=== PATIENT | female | born 1975 | race Caucasian/White ===

== ENCOUNTER 2022-09-16 17:24 | Emergency (ER) | payer MEDICAID, SELFPAY ==
--- NOTE | ~2022-09-16 | XR_ITS ---
EXAMINATION: XR CHEST CLINICAL INFORMATION: Chest pain COMPARISON: None TECHNIQUE: 2 views of the chest were obtained. FINDINGS: No significant abnormality is noted involving the heart, lungs, mediastinum, bony thorax or soft tissues. XR/XR chest 2V IMPRESSION: Unremarkable examination.
--- NOTE | 2022-09-16 17:37 | ED.CHESTPAIN ---
HPI - Chest Pain General Chief Complaint: Upper Respiratory Symptoms <Melinda Scott NP - Last Filed: 09/16/22 17:42> Stated Complaint: Sent from , Covid + 10 days ago, Chest pain <Melinda Scott NP - Last Filed: 09/16/22 17:42> Time Seen by Provider: 09/16/22 21:03 <Melinda Scott NP - Last Filed: 09/16/22 17:42> Source: patient <JOSE CRUZ Zhang - Last Filed: 09/16/22 22:21> Mode of arrival: ambulatory <JOSE CRUZ Zhang - Last Filed: 09/16/22 22:21> Limitations: no limitations <JOSE CRUZ Zhang - Last Filed: 09/16/22 22:21> History of Present Illness HPI narrative: This is a 47-year-old female past medical history significant for recent COVID-19 diagnosis last presenting to the emergency department with complaints of chest discomfort which she describes as intermittent, substernal, nonradiating stabbing in nature, dry cough, subjective fevers and chills, fatigue, malaise and intermittent shortness of breath worse with exertion and exercising. Patient denies lower extremity swelling, calf pain, headache, vision changes, dizziness, weakness, nausea, vomiting, abdominal pain, urinary symptoms, GI symptoms. No new sick contacts. She went to urgent care and advised her to come into the emergency department for further evaluation and treatment. Not a cigaret smoker, no hx of hypercoagulable do or malignancy, no hx of PE/DVT. Patient recently finished paxlovid. <JOSE CRUZ Zhang - Last Filed: 09/16/22 22:21> Related Data Home Medications: Previous Rx's Medication Instructions Recorded albuterol sulfate 90 mcg/actuation 2 inh inhalation Q4-6H PRN 09/16/22 breath activated powder inhaler shortness of breath or wheezing #1 ea prednisone 20 mg tablet 40 mg PO DAILY 5 days #10 tabs 09/16/22 <Melinda Scott NP - Last Filed: 09/16/22 17:42> Allergies/Adverse Reactions: Allergies Allergy/AdvReac Type Severity Reaction Status Date / Time No Known Allergies Allergy Verified 09/16/22 17:39 <Melinda Scott NP - Last Filed: 09/16/22 17:42> Review of Systems Review of Systems: Constitutional : No Weight loss, No Fever, No Chills, + Fatigue, + Malaise ENT/Mouth : No sore throat, No Rhinorrhea Eyes: No Eye Pain, No Swelling, No Redness Cardiovascular : + Chest Pain, + SOB, + Dyspnea on Exertion, No Orthopnea, No Edema, No Palpitations Respiratory : + Cough, No Sputum, No Wheezing Gastrointestinal : No Nausea, No Vomiting, No Diarrhea, No Constipation, No abdominal Pain, No Hematochezia, No Melena Genitourinary : No Dysuria, No Urinary Frequency, No Hematuria, Musculoskeletal : No joint pain, No Myalgias, No Joint Swelling Skin : No Skin Lesions, No rash Neuro : No Weakness, No Numbness, No Dizziness, No Headache Psych : No Anxiety/Panic, No Depression All other systems reviewed and are negative <JOSE CRUZ Zhang - Last Filed: 09/16/22 22:21> Yes all other systems are reviewed and are negative <JOSE CRUZ Zhang - Last Filed: 09/16/22 22:21> FOR[facility]LY [facility] Past Medical History Attestation statement: The following information was validated with the patient. <JOSE CRUZ Zhang - Last Filed: 09/16/22 22:21> Source: old records reviewed and nursing notes reviewed <JOSE CRUZ Zhang - Last Filed: 09/16/22 22:21> Social History Social History: Social History Advance Directives: No Advance Directives Information Provided: Yes <Melinda Scott NP - Last Filed: 09/16/22 17:42> Physical Exam Vital Signs: Vital Signs: Last Vital Signs Temp 97.3 F 09/16/22 17:38 Pulse 72 09/16/22 17:38 Resp 16 09/16/22 17:38 BP 110/70 09/16/22 17:38 Pulse Ox 99 09/16/22 17:38 O2 Del Method 09/16/22 17:38 BMI result Body Mass Index 23.1 <Melinda Scott NP - Last Filed: 09/16/22 17:42> Vital Signs: Last Vital Signs Temp 97.3 F 09/16/22 17:38 Pulse 72 09/16/22 17:38 Resp 16 09/16/22 17:38 BP 110/70 09/16/22 17:38 Pulse Ox 99 09/16/22 17:38 O2 Del Method 09/16/22 17:38 BMI result Body Mass Index 23.1 Vital signs stable <JOSE CRUZ Zhang - Last Filed: 09/16/22 22:21> Appearance: Alert.? Oriented X3.? No acute distress.? Head: Normocephalic, atraumatic, no step-offs or deformities Eyes: Pupils equal, round and reactive to light.? Neck: Normal inspection.? Neck supple.? CVS: Normal heart rate and rhythm.? Pulses normal.? Respiratory: No respiratory distress.? Breath sounds normal.? Abdomen: Soft and nontender.? Skin: Skin warm and dry.? Normal skin color.? Normal skin turgor.? Extremities: No lower extremity edema.? No calf ttp, neagtive rekha b/l. 5/5 strength to bilateral upper and lower extremities Neuro: Oriented X 3.? No motor deficit.? No sensory deficit. CN 2-12 intact <JOSE CRUZ Zhang - Last Filed: 09/16/22 22:21> Course Course Course Narrative: This is a rapid medical exam. Deferred additional HPI, ROS, PE to primary provider. 47 yo female with no known past medical history here chest pain x 2 days, mild cough, mild diff breathing. COVID + last . Went to and referred in to the emergency department for further evaluation. Will obtain labs, EKG, CXR. VSS <Melinda Scott NP - Last Filed: 09/16/22 17:42> Reevaluation(s) Reevaluation #1: CBC appears to be within normal limits. Chemistry with no acute findings requiring intervention. Troponin negative, EKG nonischemic unlikely ACS. BNP within normal limits. Chest x-ray unremarkable. D-dimer pending. <JOSE CRUZ Zhang - Last Filed: 09/16/22 22:21> Time: 21:16 <JOSE CRUZ Zhang - Last Filed: 09/16/22 22:21> Reevaluation #2: Dimer negative. Patient will be discharged home with prednisone and albuterol inhaler. Advised to follow-up with PCP. Educated patient on diagnosis and treatment plan, answered all question, patient verbalizes understanding. At this time patient will be discharged home, advised to return with new or worsening symptoms. Educated on worrisome signs and symptoms and when to return. At this time I feel comfortable discharge home. <JOSE CRUZ Zhang - Last Filed: 09/16/22 22:21> Time: 22:20 <JOSE CRUZ Zhang - Last Filed: 09/16/22 22:21> Medications Administered Discontinued Medications Generic Name Dose Route Start Last Admin Trade Name Freq PRN Reason Stop Dose Admin Ketorolac Tromethamine 30 mg 09/16/22 21:23 09/16/22 21:47 Ketorolac Tromethamine 15 Mg/Ml Vial IM 09/16/22 21:24 30 mg ONCE ONE Administration <Melinda Scott NP - Last Filed: 09/16/22 17:42> Medications Administered Discontinued Medications Generic Name Dose Route Start Last Admin Trade Name Freq PRN Reason Stop Dose Admin Ketorolac Tromethamine 30 mg 09/16/22 21:23 09/16/22 21:47 Ketorolac Tromethamine 15 Mg/Ml Vial IM 09/16/22 21:24 30 mg ONCE ONE Administration <JOSE CRUZ Zhang - Last Filed: 09/16/22 22:21> Medical Decision Making Medical Decision Making [facility] Narrative: [age]-year-old female presents with upper respiratory symptoms, chest discomfort x2 days, patient recently COVID-19 positive last . Advised to come in for further evaluation treatment from an urgent care. Physical examination benign negative Rekha bilaterally. Likely URI or post COVID syndrome. Unlikely PE, pneumonia, ACS. Patient is PERC negative. Plan at this time is basic labs, imaging, EKG, troponin, D-dimer <JOSE CRUZ Zhang - Last Filed: 09/16/22 22:21> Differential Diagnosis Differential Diagnoses: The differential diagnosis associated with the presentation includes <JOSE CRUZ Zhang - Last Filed: 09/16/22 22:21> Likely URI or post COVID syndrome. Unlikely PE, pneumonia, ACS. Patient is PERC negative. <JOSE CRUZ Zhang - Last Filed: 09/16/22 22:21> Admission/Observation Consideration of admission/observation: Escalation of care including admission/observation considered <JOSE CRUZ Zhang - Last Filed: 09/16/22 22:21> Lab Data MDM Lab Attestation statement: I reviewed the patient's lab results. <JOSE CRUZ Zhang - Last Filed: 09/16/22 22:21> Result Diagrams: 09/16/22 18:24 09/16/22 18:24 <Melinda Scott NP - Last Filed: 09/16/22 17:42> Labs: Lab Results 09/16/22 09/16/22 09/16/22 Range/Units 18:24 18:24 18:24 WBC 5.3 (4.8-10.8) X10*3/uL RBC 4.78 (4.20-5.50) X10*6/uL Hgb 13.9 (12.0-16.0) g/dl Hct 43.3 (37.0-47.0) % MCV 90.6 (80.0-98.0) fL MCH 29.1 (27.0-33.0) pg MCHC 32.1 (31.0-35.0) g/dl RDW 12.9 (11.0-16.0) % Plt Count 195 (160-400) X10*3/uL MPV 10.8 (9.4-12.3) fL Immature Gran % (Auto) 0.4 (0.0-0.4) % Neut % (Auto) 55.5 (45-73) % Lymph % (Auto) 36.0 (20-40) % Crosby % (Auto) 5.8 (2-11) % Eos % (Auto) 1.9 (0-4) % Baso % (Auto) 0.4 (0-2) % Lymph # (Auto) 1.9 (1.2-4.9) X10*3/uL Crosby # (Auto) 0.3 (0.1-1.2) X10*3/uL Eos # (Auto) 0.1 (0.0-0.4) X10*3/uL Baso # (Auto) 0.0 (0.0-0.2) X10*3/uL Abs Immat Gran (auto) 0.02 (0.00-0.03) X10*3/uL Absolute Neuts (auto) 2.9 (2.0-8.3) x10*3/uL Absolute Nucleated RBC 0.000 (0.0-0.012) X10*3/uL Nucleated RBC % (auto) 0.0 (0.0-0.2) /100WBC PT 13.5 H (10.0-13.1) SEC INR 1.2 H (0.9-1.1) D-Dimer High Sensitivty < 150 NG/ML Sodium 140 (135-145) mmol/L Potassium 3.7 (3.3-5.1) mmol/L Chloride 107 (96-108) mmol/L Carbon Dioxide 30 H (22-29) mmol/L Anion Gap 7 L (12-20) BUN 14 (9-16) mg/dL Creatinine 0.80 (0.5-1.4) mg/dL Estim Creat Clear Calc 83.6 Estimated GFR > 60 Random Glucose 88 (60-115) mg/dL Calcium 9.0 (8.4-10.2) mg/dL Total Bilirubin 0.2 (0.0-1.0) mg/dL Direct Bilirubin < 0.2 (0.0-0.5) mg/dL AST 14 (5-31) U/L ALT 12 (0-31) U/L Alkaline Phosphatase 69 (39-117) U/L Troponin I High Sens (<3.5-17.0) ng/L B-Natriuretic Peptide (<100) pg/mL Total Protein 6.5 (6.5-8.0) g/dL Albumin 4.1 (3.5-5.0) g/dL 09/16/22 09/16/22 Range/Units 18:24 18:24 WBC (4.8-10.8) X10*3/uL RBC (4.20-5.50) X10*6/uL Hgb (12.0-16.0) g/dl Hct (37.0-47.0) % MCV (80.0-98.0) fL MCH (27.0-33.0) pg MCHC (31.0-35.0) g/dl RDW (11.0-16.0) % Plt Count (160-400) X10*3/uL MPV (9.4-12.3) fL Immature Gran % (Auto) (0.0-0.4) % Neut % (Auto) (45-73) % Lymph % (Auto) (20-40) % Crosby % (Auto) (2-11) % Eos % (Auto) (0-4) % Baso % (Auto) (0-2) % Lymph # (Auto) (1.2-4.9) X10*3/uL Crosby # (Auto) (0.1-1.2) X10*3/uL Eos # (Auto) (0.0-0.4) X10*3/uL Baso # (Auto) (0.0-0.2) X10*3/uL Abs Immat Gran (auto) (0.00-0.03) X10*3/uL Absolute Neuts (auto) (2.0-8.3) x10*3/uL Absolute Nucleated RBC (0.0-0.012) X10*3/uL Nucleated RBC % (auto) (0.0-0.2) /100WBC PT (10.0-13.1) SEC INR (0.9-1.1) D-Dimer High Sensitivty NG/ML Sodium (135-145) mmol/L Potassium (3.3-5.1) mmol/L Chloride (96-108) mmol/L Carbon Dioxide (22-29) mmol/L Anion Gap (12-20) BUN (9-16) mg/dL Creatinine (0.5-1.4) mg/dL Estim Creat Clear Calc Estimated GFR Random Glucose (60-115) mg/dL Calcium (8.4-10.2) mg/dL Total Bilirubin (0.0-1.0) mg/dL Direct Bilirubin (0.0-0.5) mg/dL AST (5-31) U/L ALT (0-31) U/L Alkaline Phosphatase (39-117) U/L Troponin I High Sens < 3.5 (<3.5-17.0) ng/L B-Natriuretic Peptide 17 (<100) pg/mL Total Protein (6.5-8.0) g/dL Albumin (3.5-5.0) g/dL <Melinda Scott, [employer] - Last Filed: 09/16/22 17:42> Lab Results 09/16/22 09/16/22 09/16/22 Range/Units 18:24 18:24 18:24 WBC 5.3 (4.8-10.8) X10*3/uL RBC 4.78 (4.20-5.50) X10*6/uL Hgb 13.9 (12.0-16.0) g/dl Hct 43.3 (37.0-47.0) % MCV 90.6 (80.0-98.0) fL MCH 29.1 (27.0-33.0) pg MCHC 32.1 (31.0-35.0) g/dl RDW 12.9 (11.0-16.0) % Plt Count 195 (160-400) X10*3/uL MPV 10.8 (9.4-12.3) fL Immature Gran % (Auto) 0.4 (0.0-0.4) % Neut % (Auto) 55.5 (45-73) % Lymph % (Auto) 36.0 (20-40) % Crosby % (Auto) 5.8 (2-11) % Eos % (Auto) 1.9 (0-4) % Baso % (Auto) 0.4 (0-2) % Lymph # (Auto) 1.9 (1.2-4.9) X10*3/uL Crosby # (Auto) 0.3 (0.1-1.2) X10*3/uL Eos # (Auto) 0.1 (0.0-0.4) X10*3/uL Baso # (Auto) 0.0 (0.0-0.2) X10*3/uL Abs Immat Gran (auto) 0.02 (0.00-0.03) X10*3/uL Absolute Neuts (auto) 2.9 (2.0-8.3) x10*3/uL Absolute Nucleated RBC 0.000 (0.0-0.012) X10*3/uL Nucleated RBC % (auto) 0.0 (0.0-0.2) /100WBC PT 13.5 H (10.0-13.1) SEC INR 1.2 H (0.9-1.1) D-Dimer High Sensitivty < 150 NG/ML Sodium 140 (135-145) mmol/L Potassium 3.7 (3.3-5.1) mmol/L Chloride 107 (96-108) mmol/L Carbon Dioxide 30 H (22-29) mmol/L Anion Gap 7 L (12-20) BUN 14 (9-16) mg/dL Creatinine 0.80 (0.5-1.4) mg/dL Estim Creat Clear Calc 83.6 Estimated GFR > 60 Random Glucose 88 (60-115) mg/dL Calcium 9.0 (8.4-10.2) mg/dL Total Bilirubin 0.2 (0.0-1.0) mg/dL Direct Bilirubin < 0.2 (0.0-0.5) mg/dL AST 14 (5-31) U/L ALT 12 (0-31) U/L Alkaline Phosphatase 69 (39-117) U/L Troponin I High Sens (<3.5-17.0) ng/L B-Natriuretic Peptide (<100) pg/mL Total Protein 6.5 (6.5-8.0) g/dL Albumin 4.1 (3.5-5.0) g/dL 09/16/22 09/16/22 Range/Units 18:24 18:24 WBC (4.8-10.8) X10*3/uL RBC (4.20-5.50) X10*6/uL Hgb (12.0-16.0) g/dl Hct (37.0-47.0) % MCV (80.0-98.0) fL MCH (27.0-33.0) pg MCHC (31.0-35.0) g/dl RDW (11.0-16.0) % Plt Count (160-400) X10*3/uL MPV (9.4-12.3) fL Immature Gran % (Auto) (0.0-0.4) % Neut % (Auto) (45-73) % Lymph % (Auto) (20-40) % Crosby % (Auto) (2-11) % Eos % (Auto) (0-4) % Baso % (Auto) (0-2) % Lymph # (Auto) (1.2-4.9) X10*3/uL Crosby # (Auto) (0.1-1.2) X10*3/uL Eos # (Auto) (0.0-0.4) X10*3/uL Baso # (Auto) (0.0-0.2) X10*3/uL Abs Immat Gran (auto) (0.00-0.03) X10*3/uL Absolute Neuts (auto) (2.0-8.3) x10*3/uL Absolute Nucleated RBC (0.0-0.012) X10*3/uL Nucleated RBC % (auto) (0.0-0.2) /100WBC PT (10.0-13.1) SEC INR (0.9-1.1) D-Dimer High Sensitivty NG/ML Sodium (135-145) mmol/L Potassium (3.3-5.1) mmol/L Chloride (96-108) mmol/L Carbon Dioxide (22-29) mmol/L Anion Gap (12-20) BUN (9-16) mg/dL Creatinine (0.5-1.4) mg/dL Estim Creat Clear Calc Estimated GFR Random Glucose (60-115) mg/dL Calcium (8.4-10.2) mg/dL Total Bilirubin (0.0-1.0) mg/dL Direct Bilirubin (0.0-0.5) mg/dL AST (5-31) U/L ALT (0-31) U/L Alkaline Phosphatase (39-117) U/L Troponin I High Sens < 3.5 (<3.5-17.0) ng/L B-Natriuretic Peptide 17 (<100) pg/mL Total Protein (6.5-8.0) g/dL Albumin (3.5-5.0) g/dL <JOSE CRUZ Zhang - Last Filed: 09/16/22 22:21> Independent Interpretation I performed an independent interpretation of an: EKG (Ventricular rate of 62, VA normal, QRS normal, QT/QTC normal. EKG with normal sinus rhythm, low voltage, no ST elevations or inversions concerning for ischemia.) and Plain X-Ray (Unremarkable) <JOSE CRUZ Zhang - Last Filed: 09/16/22 22:21> Radiology Impression Discussion of test interpretation with radiology: I have reviewed the radiologist's reading. <JOSE CRUZ Zhang - Last Filed: 09/16/22 22:21> Core Measures AMI core measures followed: Yes <JOSE CRUZ Zhang - Last Filed: 09/16/22 22:21> Measure exclusions: not indicated <JOSE CRUZ Zhang - Last Filed: 09/16/22 22:21> Critical Care Time Critical Care Time Critical Care Time: No <JOSE CRUZ Zhang - Last Filed: 09/16/22 22:21> Discharge Plan Discharge Clinical Impression: Upper respiratory infection <Melinda Scott NP - Last Filed: 09/16/22 17:42> Patient Disposition: Home, Self-Care <Melinda Scott NP - Last Filed: 09/16/22 17:42> Instructions: Upper Respiratory Infection (ED), Viral Syndrome (ED) <Melinda Scott NP - Last Filed: 09/16/22 17:42> Additional Instructions: Take your medications as prescribed. If you were prescribed antibiotics today, it is important that you take your medication to their entirety, do not skip any doses, do not finish them early. Follow-up with your primary care provider this week. Return to the emergency department with new or worsening symptoms. Such as fevers, chills, chest pain, shortness of breath, nausea, vomiting, dizziness, headache, vision changes, lethargy In case of emergency call 911 <Melinda Scott NP - Last Filed: 09/16/22 17:42> Prescriptions: New albuterol sulfate 90 mcg/actuation aerosol powdr breath activated 2 inh inhalation Q4-6H PRN (Reason: shortness of breath or wheezing) Qty: 1 0RF prednisone 20 mg tablet 40 mg PO DAILY 5 Days Qty: 10 0RF <Melinda Scott NP - Last Filed: 09/16/22 17:42> Referrals: Joey Grider MD [Primary Care Provider] - 2 days <Melinda Scott NP - Last Filed: 09/16/22 17:42>
[2022-09-16 17:38] VITALS: BP 110/70; PULSE 72; RESP 16; TEMP 36.3; O2SAT 99; BMI 23.1
--- NOTE | 2022-09-16 17:40 | ECG_ITS ---
Test Reason : cx pain Blood Pressure : / mmHG Vent. Rate : 062 BPM Atrial Rate : 062 BPM P-R Int : 154 ms QRS Dur : 066 ms QT Int : 412 ms P-R-T Axes : 083 067 065 degrees QTc Int : 418 ms Normal sinus rhythm Low voltage QRS Cannot rule out Anterior infarct , age undetermined Abnormal ECG No previous ECGs available Referred By: Melinda Scott Electronically Signed By:Matty Gan
[2022-09-16 18:30] LABS: Basophils Percent Auto 0.4 % (0-2); Eosinophils Absolute Auto 0.1 X10*3/uL (0.0-0.4); Eosinophils Percent Auto 1.9 % (0-4); Hematocrit 43.3 % (37.0-47.0); Hemoglobin 13.9 g/dl (12.0-16.0); Imm Gran Abs Auto 0.02 X10*3/uL (0.00-0.03); Imm Gran Pct Auto 0.4 % (0.0-0.4); Lymphocytes Absolute Auto 1.9 X10*3/uL (1.2-4.9); MANUAL DIFF FLAG NO; Mean Corpuscular HGB Conc 32.1 g/dl (31.0-35.0); Mean Corpuscular Hemoglobin 29.1 pg (27.0-33.0); Mean Corpuscular Volume 90.6 fL (80.0-98.0); Mean Platelet Volume 10.8 fL (9.4-12.3); Monocytes Absolute Auto 0.3 X10*3/uL (0.1-1.2); Monocytes Percent Auto 5.8 % (2-11); Neutrophils Absolute Auto 2.9 x10*3/uL (2.0-8.3); Neutrophils Percent Auto 55.5 % (45-73); Platelet Count 195 X10*3/uL (160-400); Red Blood Count 4.78 X10*6/uL (4.20-5.50); Red Cell Distribution Width 12.9 % (11.0-16.0); White Blood Count 5.3 X10*3/uL (4.8-10.8)
[2022-09-16 18:36] LABS: INTERNATIONAL NORM RATIO 1.2 (0.9-1.1); Prothrombin Time 13.5 SEC (10.0-13.1)
[2022-09-16 18:49] LABS: Alanine Aminotransferase 12 U/L (0-31); Albumin Level 4.1 g/dL (3.5-5.0); Alkaline Phosphatase 69 U/L (39-117); Anion Gap 7 (12-20); Aspartate Amino Transferase 14 U/L (5-31); Bilirubin Direct < 0.2 mg/dL (0.0-0.5); Bilirubin Total 0.2 mg/dL (0.0-1.0); Blood Urea Nitrogen 14 mg/dL (9-16); Carbon Dioxide 30 mmol/L (22-29); Chloride 107 mmol/L (96-108); Creatinine Clr Calc Pharmacy 83.6; Estimated Glomerular Filt Rate > 60; Glucose Random 88 mg/dL (60-115); Potassium 3.7 mmol/L (3.3-5.1); Sodium 140 mmol/L (135-145); Total Protein 6.5 g/dL (6.5-8.0)
[2022-09-16 19:08] LABS: Troponin-I High Sensitivity < 3.5 ng/L (<3.5-17.0)
[2022-09-16 21:35] LABS: B Type Natriuretic Peptide 17 pg/mL (<100)
[2022-09-16 21:36] LABS: D Dimer High Sensitivity < 150 NG/ML
[2022-09-16] MEDS: Ketorolac Tromethamine 15 MG/ML VIAL 30 MG IM (21:47)
== END 2022-09-16 22:22 | disposition home or self-care (01) ==
PROVIDERS: Nurse Practitioner Family; Physician Assistant; Emergency Provider Emergency Medicine; PCP Internal Medicine
DX: J06.9 Acute upper respiratory infection, unspecified (principal); R07.89 Other chest pain; R06.02 Shortness of breath; Z79.899 Other long term (current) drug therapy
CPT/HCPCS: 36415; 71046; 80048; 80076; 83880; 84484; 85025; 85379; 85610; 93005; 96372; 99283; 99284; J1885